=== PATIENT | female | born 1950 | race Caucasian/White ===

== ENCOUNTER 2018-01-13 03:57 | Emergency (ER) | payer MEDICARE, OTHER ==
[~2018-01-13] VITALS: Ht 167.6 cm; Wt 91.6 kg
[~2018-01-13 03:57] MED LIST: ACEASPCAF; CLIN300 PO; HYDCHL50 PO; ONDA8ODT MM; OXYACE5T PO; TRAM50 PO
[2018-01-13] MEDS ORDERED: XARELTO10 MG PO (04:15)
[2018-01-13] MEDS ORDERED: FURO20 PO (04:16)
[2018-01-13] MEDS ORDERED: K-Tab10 MEQ PO (04:17)
[2018-01-13] MEDS ORDERED: DILT120 PO (04:17)
[2018-01-13] MEDS ORDERED: TAMSULOSIN HCL0.4 MG PO (04:18)
[2018-01-13] MEDS ORDERED: GATIFLOXACIN2.5 ML LEFTEYE (05:00)
[2018-01-13] MEDS ORDERED: Norco 10-325 T1 EACH PO (05:00)
== END 2018-01-13 05:17 | disposition home or self-care (01) ==
LOC: ER 03:57
DX: H10.89 Other conjunctivitis (principal); Z88.0 Allergy status to penicillin; Z79.899 Other long term (current) drug therapy; I10 Essential (primary) hypertension
CPT/HCPCS: 99283

== ENCOUNTER 2018-06-24 06:53 | Day surgery (SDC) | payer MEDICARE, OTHER ==
[~2018-06-24 06:53] MED LIST changes: +DILT120 PO; +FURO20 PO; +GATIFLOXACIN2.5 ML LEFTEYE; +K-Tab10 MEQ PO; +Norco 10-325 T1 EACH PO; +TAMSULOSIN HCL0.4 MG PO; +XARELTO10 MG PO
== END 2018-06-24 22:38 | disposition home or self-care (01) ==
LOC: MHTC 06:53
PROC: 0JH632Z Insertion of Monitoring Device into Chest Subcutaneous Tissue and Fascia, Percutaneous Approach (ICD-10-PCS; principal; 2018-06-24)
DX: I48.0 Paroxysmal atrial fibrillation (principal); Z98.84 Bariatric surgery status; Z79.01 Long term (current) use of anticoagulants; R32 Unspecified urinary incontinence
CPT/HCPCS: 33282; 99152; C1764; J0690; J2250; J3010; J7040

== ENCOUNTER 2019-02-24 22:22 | Emergency (ER) | payer MEDICARE, OTHER ==
[~2019-02-24] VITALS: Ht 167.6 cm; Wt 89.8 kg
[2019-02-24 22:52] LABS: BASOPHILS ABSOLUTE AUTO 0.09 K/mm3 (0.00-0.23); BASOPHILS PERCENT AUTO 1 % (0-2); EOSINOPHILS ABSOLUTE AUTO 0.13 K/mm3 (0.00-0.68); EOSINOPHILS PERCENT AUTO 2 % (0-6); Hemoglobin 12.6 g/dL (11.5-16.0); IMMATURE GRAN ABSOLUTE AUTO 0.01 K/mm3 (0.00-0.10); IMMATURE GRAN PERCENT AUTO 0 % (0-1); LYMPHOCYTES ABSOLUTE AUTO 2.66 K/mm3 (0.84-5.20); LYMPHOCYTES PERCENT AUTO 40 % (21-46); MONOCYTES PERCENT AUTO 12 % (4-13); Mean Corpuscular HGB 30.2 pg (26.0-34.0); Mean Corpuscular HGB Conc 32.3 g/dL (31.5-36.5); Mean Corpuscular Volume 94 fL (80-100); Mean Platelet Volume 9.3 fL (9.1-12.4); NEUTROPHILS ABSOLUTE AUTO 3.01 K/mm3 (1.96-9.15); NEUTROPHILS PERCENT AUTO 45 % (41-73); Platelet Count 243 K/mm3 (150-400); RDW Coefficient Variation 13.2 % (11.7-14.2); RDW Standard Deviation 45.1 fL (35.1-46.3); Red Blood Cell Count 4.17 M/mm3 (3.80-5.20)
[2019-02-24 23:12] LABS: Alanine Aminotransfer (ALT/SGP 22 U/L (12-78); Albumin, Blood 3.5 g/dL (3.4-5.0); Albumin/Globulin Ratio 1.1 (0.8-1.8); Alk Phos 108 U/L (50-136); Anion Gap 7 mmol/L (6-16); Aspartate Aminotrans (AST/SGOT 19 U/L (12-37); Bilirubin, Total 0.3 mg/dL (0.1-1.0); Blood Urea Nitrogen 25 mg/dL (8-24); Bun/Creatinine Ratio 39.5 (12.0-20.0); CO2, Blood 26 mmol/L (21-32); Calcium, Blood 8.6 mg/dL (8.5-10.1); Chloride, Blood 109 mmol/L (98-108); Creatinine, Blood 0.63 mg/dL (0.40-1.00); Globulin, Blood 3.2 g/dL (2.2-4.0); Glomerular Filtration Rate >60 (60-); Glucose, Blood 75 mg/dL (70-99); Potassium, Blood 3.7 mmol/L (3.5-5.5); Sodium, Blood 142 mmol/L (136-145); Total Protein, Blood 6.7 g/dL (6.4-8.2)
[2019-02-24 23:17] LABS: Free Thyroxine 0.88 ng/dL (0.70-1.60)
[2019-02-24 23:19] LABS: Thyroid Stimulating Hormone 2.83 uIU/mL (0.360-4.800)
== END 2019-02-25 00:05 | disposition home or self-care (01) ==
LOC: ER 22:22
PROVIDERS: Emergency Medicine
DX: I48.91 Unspecified atrial fibrillation (principal); I10 Essential (primary) hypertension; Z88.0 Allergy status to penicillin; Z79.899 Other long term (current) drug therapy
CPT/HCPCS: 36415; 80053; 84439; 84443; 85025; 93005; 93010; 93299; J7030

== ENCOUNTER 2019-09-27 21:11 | Emergency (ER) | payer MEDICARE, OTHER ==
[~2019-09-27] VITALS: Ht 162.6 cm; Wt 59.0 kg
[2019-09-27] MEDS ORDERED: ATOR20 (21:44)
[2019-09-27] MEDS ORDERED: LOSA25 (21:44)
[2019-09-27] MEDS ORDERED: OXYB5 PO (21:45)
[2019-09-27 22:56] LABS: BASOPHILS ABSOLUTE AUTO 0.07 K/mm3 (0.00-0.23); BASOPHILS PERCENT AUTO 1 % (0-2); EOSINOPHILS PERCENT AUTO 1 % (0-6); Hematocrit 41.2 % (33.0-51.0); Hemoglobin 13.8 g/dL (11.5-16.0); IMMATURE GRAN ABSOLUTE AUTO 0.01 K/mm3 (0.00-0.10); IMMATURE GRAN PERCENT AUTO 0 % (0-1); LYMPHOCYTES ABSOLUTE AUTO 2.25 K/mm3 (0.84-5.20); LYMPHOCYTES PERCENT AUTO 27 % (21-46); MONOCYTES ABSOLUTE AUTO 0.79 K/mm3 (0.16-1.47); MONOCYTES PERCENT AUTO 10 % (4-13); Mean Corpuscular HGB 31.6 pg (26.0-34.0); Mean Corpuscular HGB Conc 33.5 g/dL (31.5-36.5); Mean Corpuscular Volume 94 fL (80-100); Mean Platelet Volume 10.5 fL (9.1-12.4); NEUTROPHILS ABSOLUTE AUTO 5.12 K/mm3 (1.96-9.15); NEUTROPHILS PERCENT AUTO 61 % (41-73); Platelet Count 291 K/mm3 (150-400); RDW Coefficient Variation 13.2 % (11.7-14.2); RDW Standard Deviation 45.5 fL (35.1-46.3); Red Blood Cell Count 4.37 M/mm3 (3.80-5.20); White Blood Cell Count 8.34 K/mm3 (4.00-11.30)
[2019-09-27 23:17] LABS: Alanine Aminotransfer (ALT/SGP 25 U/L (12-78); Albumin, Blood 3.2 g/dL (3.4-5.0); Albumin/Globulin Ratio 0.9 (0.8-1.8); Alk Phos 101 U/L (50-136); Anion Gap 6 mmol/L (6-16); Aspartate Aminotrans (AST/SGOT 28 U/L (12-37); Bilirubin, Total 0.3 mg/dL (0.1-1.0); Blood Urea Nitrogen 24 mg/dL (8-24); Bun/Creatinine Ratio 35.5 (12.0-20.0); CO2, Blood 25 mmol/L (21-32); Calcium, Blood 8.8 mg/dL (8.5-10.1); Chloride, Blood 110 mmol/L (98-108); Creatinine, Blood 0.68 mg/dL (0.40-1.00); Globulin, Blood 3.5 g/dL (2.2-4.0); Glomerular Filtration Rate >60 (60-); Glucose, Blood 70 mg/dL (70-99); Potassium, Blood 4.1 mmol/L (3.5-5.5); Sodium, Blood 141 mmol/L (136-145); Total Protein, Blood 6.7 g/dL (6.4-8.2); Troponin I <0.015 ng/mL (0.000-0.040)
== END 2019-09-27 23:49 | disposition home or self-care (01) ==
LOC: ER 21:11
PROVIDERS: Emergency Medicine
DX: I48.91 Unspecified atrial fibrillation (principal); I10 Essential (primary) hypertension; Z88.0 Allergy status to penicillin; Z79.899 Other long term (current) drug therapy; Z79.01 Long term (current) use of anticoagulants; Z45.09 Encounter for adjustment and management of other cardiac device
CPT/HCPCS: 36415; 80053; 84484; 85025; 93005; 93010; 93299; 96360; 99285-25; J7030

== ENCOUNTER 2019-09-28 12:15 | Emergency (ER) | payer MEDICARE, OTHER ==
[~2019-09-28] VITALS: Ht 167.6 cm; Wt 81.7 kg
[~2019-09-28 12:15] MED LIST changes: +ATOR20; +LOSA25; +OXYB5 PO
[2019-09-28 13:13] LABS: BASOPHILS ABSOLUTE AUTO 0.07 K/mm3 (0.00-0.23); BASOPHILS PERCENT AUTO 1 % (0-2); EOSINOPHILS ABSOLUTE AUTO 0.07 K/mm3 (0.00-0.68); EOSINOPHILS PERCENT AUTO 1 % (0-6); Hematocrit 41.3 % (33.0-51.0); Hemoglobin 13.7 g/dL (11.5-16.0); IMMATURE GRAN ABSOLUTE AUTO 0.01 K/mm3 (0.00-0.10); IMMATURE GRAN PERCENT AUTO 0 % (0-1); LYMPHOCYTES ABSOLUTE AUTO 2.47 K/mm3 (0.84-5.20); LYMPHOCYTES PERCENT AUTO 34 % (21-46); MONOCYTES ABSOLUTE AUTO 0.66 K/mm3 (0.16-1.47); MONOCYTES PERCENT AUTO 9 % (4-13); Mean Corpuscular HGB 31.3 pg (26.0-34.0); Mean Corpuscular HGB Conc 33.2 g/dL (31.5-36.5); Mean Corpuscular Volume 94 fL (80-100); Mean Platelet Volume 9.5 fL (9.1-12.4); NEUTROPHILS ABSOLUTE AUTO 4.03 K/mm3 (1.96-9.15); NEUTROPHILS PERCENT AUTO 55 % (41-73); Platelet Count 283 K/mm3 (150-400); RDW Coefficient Variation 13.2 % (11.7-14.2); Red Blood Cell Count 4.38 M/mm3 (3.80-5.20); White Blood Cell Count 7.31 K/mm3 (4.00-11.30)
[2019-09-28 13:41] LABS: Alanine Aminotransfer (ALT/SGP 24 U/L (12-78); Albumin, Blood 3.4 g/dL (3.4-5.0); Alk Phos 83 U/L (50-136); Anion Gap 5 mmol/L (6-16); Aspartate Aminotrans (AST/SGOT 16 U/L (12-37); Bilirubin, Total 0.4 mg/dL (0.1-1.0); Blood Urea Nitrogen 21 mg/dL (8-24); Bun/Creatinine Ratio 26.7 (12.0-20.0); CO2, Blood 28 mmol/L (21-32); Calcium, Blood 8.9 mg/dL (8.5-10.1); Chloride, Blood 108 mmol/L (98-108); Creatinine, Blood 0.79 mg/dL (0.40-1.00); Globulin, Blood 3.4 g/dL (2.2-4.0); Glomerular Filtration Rate >60 (60-); Glucose, Blood 89 mg/dL (70-99); Potassium, Blood 3.8 mmol/L (3.5-5.5); Sodium, Blood 141 mmol/L (136-145); Total Protein, Blood 6.8 g/dL (6.4-8.2); Troponin I <0.015 ng/mL (0.000-0.040)
[2019-09-28 14:47] LABS: Source, Urine Voided
[2019-09-28 15:03] LABS: Bilirubin, Urine Neg (Neg); Blood, Urine 1+ (Neg); Glucose Qualitative, Urine Neg (Neg); Ketones, Urine 1+ (Neg); Leukocyte Esterase, Urine 3+ (Neg); Nitrite, Urine Neg (Neg); Protein, Urine Neg (Neg); Specific Gravity, Urine 1.015 (1.003-1.022); Urobilinogen, Urine NORM (Normal)
[2019-09-28 15:07] LABS: Appearance, Urine Clear (Clear); Color, Urine Yellow (P-Yellow)
[2019-09-28 15:09] LABS: Bacteria Few /hpf; Mucus Mod (0-Heavy); Squamous Epithelial Cells Few /hpf (Few)
--- NOTE | 2019-09-28 16:44 | NUR ---
DEVICE INTERROGATION DONE PER ORDER BY DR MCDONALD. APPROPRIATELY SENSING.
== END 2019-09-28 17:31 | disposition home or self-care (01) ==
LOC: ER 12:15
PROVIDERS: Emergency Medicine; Physician Assistant
DX: I48.91 Unspecified atrial fibrillation (principal); I10 Essential (primary) hypertension; Z88.0 Allergy status to penicillin; Z79.899 Other long term (current) drug therapy
CPT/HCPCS: 36415; 71046; 80053; 81001; 83735; 83880; 84443; 84484; 85025; 87086; 92960; 93005; 93010; 93291; 96360-59; 96361-59; 99285-25; J7030

== ENCOUNTER 2019-10-11 06:00 | Day surgery (SDC) | payer MEDICARE, OTHER ==
[~2019-10-11] VITALS: Ht 182.9 cm; Wt 89.0 kg
[2019-10-11] MEDS ORDERED: ELIQUIS5 MG PO (06:39)
[2019-10-11] MEDS ORDERED: CENTRUM SILVER1 EAC2 PO (06:40)
--- NOTE | 2019-10-11 07:05 | NUR ---
SAMMY NAVARRO WITH [employer] IN ROOM TO INTERROGATE LOOP RECORDER AFTER CARDIOVERSION. VSS. RIVERO PT IN SINUS RHYTHM ON MONITOR.
--- NOTE | 2019-10-11 07:32 | NUR ---
EKG OBTAINED. VSS. NADN. PT DRESSES SELF WITHOUT DIFF. PT IV DC'D. CATH INTACT. PRESSURE DSG IN PLACE. PT VERBALIZES UNDERSTANDING WRITTEN AND VERBAL ORDERS. PT DC TO HOME VIA WC BY FRIEND.
== END 2019-10-11 22:59 | disposition home or self-care (01) ==
LOC: MHTC 06:00
DX: I48.91 Unspecified atrial fibrillation (principal); I71.9 Aortic aneurysm of unspecified site, without rupture; I10 Essential (primary) hypertension; Z88.0 Allergy status to penicillin; Z79.01 Long term (current) use of anticoagulants; Z79.899 Other long term (current) drug therapy
CPT/HCPCS: 92960; 93005; 93010; J2704; J7030

== ENCOUNTER 2019-10-17 12:54 | Day surgery (SDC) | payer MEDICARE, OTHER ==
[~2019-10-17 12:54] MED LIST changes: +CENTRUM SILVER1 EAC2 PO; +ELIQUIS5 MG PO
--- NOTE | 2019-10-17 16:06 | NUR ---
PT CARDIOVERSION 1 200 J SHOCK, SINUS FOR SHORT TIME THEN RYTHMN CONVERTED BACK TO AFIB. DR JAMES NOTIFIED, PLAN IS TO DC AND PT TO START AMIODARONE REGIMIN TODAY. F/U W DR MCDONALD SCHEDULED THIS COMING THURSDAY AT 1230. PT TOLD TO CALL [facility] AND PUT CARDIAC CT/MRI ON HOLD FOR NOW, PT DRESSED, IV DC'D INTACT, DC'D BY THIS RN BY WC W FRIEND DRIVING PT HOME.
== END 2019-10-17 22:39 | disposition home or self-care (01) ==
LOC: MHTC 12:54
DX: I48.91 Unspecified atrial fibrillation (principal); I10 Essential (primary) hypertension; E78.5 Hyperlipidemia, unspecified; E66.9 Obesity, unspecified; Z79.01 Long term (current) use of anticoagulants; Z79.899 Other long term (current) drug therapy; Z88.0 Allergy status to penicillin; Z68.27 Body mass index [BMI] 27.0-27.9, adult
CPT/HCPCS: 92960; 93005; 93010; 93291; 99152; J2250; J3010; J7030

== ENCOUNTER → 2020-07-25 | Outpatient (CLI) | payer MEDICARE, OTHER | END | disposition home or self-care (01) | LOC: LAB SRC 08:09 → LAB SHORT 08:09 | DX: R30.0 Dysuria (principal) | CPT/HCPCS: 87086 ==

== ENCOUNTER 2022-08-22 13:22 | Day surgery (SDC) | payer MEDICARE, OTHER ==
[~2022-08-22 13:22] MED LIST changes: +ATOR10 PO; -ATOR20
[2022-08-22] MEDS ORDERED: AMIODARONE HCL100 M1 PO (16:48)
[2022-08-22] MEDS ORDERED: XARELTO20 MG PO (16:49)
== END 2022-08-22 16:28 | disposition home or self-care (01) ==
LOC: ATC 13:22
DX: U07.1 COVID-19 (principal); I48.0 Paroxysmal atrial fibrillation; I10 Essential (primary) hypertension; Z88.0 Allergy status to penicillin; Z79.01 Long term (current) use of anticoagulants
CPT/HCPCS: 96374

== ENCOUNTER → 2023-05-18 | Outpatient (CLI) | payer MEDICARE, OTHER ==
[~2023-05-18] MED LIST changes: +AMIODARONE HCL100 M1 PO; +XARELTO20 MG PO
[2023-05-22 11:51] LABS: Stool Occult Bld Immuno 1 Positive (NEGATIVE)
== END ==
LOC: LAB SHORT 15:10 → LAB 15:10
PROVIDERS: Registered Nurse
DX: K92.1 Melena (principal)
CPT/HCPCS: G0328

== ENCOUNTER 2023-06-10 08:08 | Day surgery (SDC) | payer MEDICARE, OTHER ==
[2023-06-10] VITALS (28 sets, daily range): BP systolic 122–165; BP diastolic 66–105
[~2023-06-10] VITALS: Ht 165.1 cm; Wt 79.3 kg
[~2023-06-10 08:08] MED LIST changes: +LOSARTAN POTASS25 M2 PO
--- NOTE | 2023-06-10 08:50 | NUR ---
Ambulatory in Day Surgery. History, Chart, Medications and Allergies reviewed before start of procedure. Lungs clear T/O to Auscultation. Patient confirms NPO status and agrees with scheduled surgery. Pre-Op teaching done. Pt verbalizes understanding. Patient States Post-Procedure ride home has been arranged.
--- NOTE | 2023-06-10 10:39 | NUR ---
06/10/23 Jessica Araiza HISTORY, CHART, MEDICATIONS AND ALLERGIES REVIEWED BEFORE START OF PROCEDURE. PATIENT CONFIRMS NPO STATUS AND AGREES WITH SCHEDULED PROCEDURE. 3-LEAD EKG REVIEWED WITH PHYSICIAN PRIOR TO START OF PROCEDURE. MONITOR INTACT WITH CONTINUOUS PULSE OXIMETRY,CAPNOGRAPHY, 3-LEAD EKG, INTERMITTENT BP. SUPPLEMENTAL O2 TO BE TITRATED THROUGHOUT PROCEDURE TO MAINTAIN O2 SATURATION ABOVE 90%. PATIENT DETERMINED TO BE ASA APPROPRIATE FOR PROPOFOL SEDATION PRIOR TO START OF PROCEDURE BY .
--- NOTE | 2023-06-10 11:10 | NUR ---
REPORT RECIEVED. DR MORGAN AND FAMILY AT BEDSIDE. PT SITTING UP TOLERING PO FLUIDS. VSS ON ROOM AIR
--- NOTE | 2023-06-10 11:25 | NUR ---
Patient up to Ambulate independently. Gait steady. Discharge instructions reviewed with patient AND FAMILY . Patient verbalizes understanding. Copy given to patient to take home. Discharged via wheelchair to private car for ride home.
== END 2023-06-10 11:36 | disposition home or self-care (01) ==
LOC: ORSCMMR 08:08 → ORD 09:00 → ORSCMMR 11:36
PROVIDERS: Internal Medicine Gastroenterology
PROC: 0DB78ZX Excision of Stomach, Pylorus, Via Natural or Artificial Opening Endoscopic, Diagnostic (ICD-10-PCS; principal; 2023-06-10 09:00)
PROC: 0DBH8ZX Excision of Cecum, Via Natural or Artificial Opening Endoscopic, Diagnostic (ICD-10-PCS; principal; 2023-06-10 09:00)
PROC: 0DBL8ZX Excision of Transverse Colon, Via Natural or Artificial Opening Endoscopic, Diagnostic (ICD-10-PCS; principal; 2023-06-10 09:00)
DX: K92.1 Melena (principal); D50.0 Iron deficiency anemia secondary to blood loss (chronic); D12.0 Benign neoplasm of cecum; D12.3 Benign neoplasm of transverse colon; K29.70 Gastritis, unspecified, without bleeding; Z98.84 Bariatric surgery status; I48.91 Unspecified atrial fibrillation; Z79.01 Long term (current) use of anticoagulants; I10 Essential (primary) hypertension; Z79.899 Other long term (current) drug therapy; E78.00 Pure hypercholesterolemia, unspecified
CPT/HCPCS: 88305; A9270; J2704; J7120

== ENCOUNTER 2024-07-02 21:33 | Emergency (ER) | payer MEDICARE, OTHER ==
[~2024-07-02] VITALS: Ht 167.6 cm; Wt 82.5 kg
[2024-07-02] MEDS ORDERED: Tranexamic Acid 1000 MG/10 ML 10ML Vial (SDV) SCH (22:15)
[2024-07-02] MEDS ORDERED: Oxymetazoline 0.05% Nasal Relief Spray 15mL BTL SCH (22:15)
[2024-07-02] MEDS ORDERED: Silver Nitr/Potassium Nitrate 1 EA APPL TOP ONE (22:15)
[2024-07-03] MEDS ORDERED: Silver Nitr/Potassium Nitrate 1 EA APPL TOP ONE (01:05)
[2024-07-03 02:00] VITALS: BP 104/79
== END 2024-07-03 02:04 | disposition home or self-care (01) ==
LOC: ER 21:33
DX: R04.0 Epistaxis (principal); I10 Essential (primary) hypertension; I48.91 Unspecified atrial fibrillation; Z79.899 Other long term (current) drug therapy; Z88.0 Allergy status to penicillin
CPT/HCPCS: 30901; 99283-25; A9270

== ENCOUNTER 2024-07-04 23:25 | Emergency (ER) | payer MEDICARE, OTHER ==
[~2024-07-04] VITALS: Ht 167.6 cm; Wt 81.7 kg
[2024-07-04 23:40] LABS: BASOPHILS ABSOLUTE AUTO 0.09 K/mm3 (0.00-0.23); BASOPHILS PERCENT AUTO 1 % (0-2); EOSINOPHILS ABSOLUTE AUTO 0.08 K/mm3 (0.00-0.68); EOSINOPHILS PERCENT AUTO 1 % (0-6); Hematocrit 37.7 % (33.0-51.0); Hemoglobin 12.3 g/dL (11.5-16.0); IMMATURE GRAN ABSOLUTE AUTO 0.02 K/mm3 (0.00-0.10); IMMATURE GRAN PERCENT AUTO 0 % (0-1); LYMPHOCYTES ABSOLUTE AUTO 2.08 K/mm3 (0.84-5.20); LYMPHOCYTES PERCENT AUTO 29 % (21-46); MONOCYTES PERCENT AUTO 10 % (4-13); Mean Corpuscular HGB 32.7 pg (26.0-34.0); Mean Corpuscular HGB Conc 32.6 g/dL (31.5-36.5); Mean Corpuscular Volume 100 fL (80-100); Mean Platelet Volume 9.3 fL (9.1-12.4); NEUTROPHILS ABSOLUTE AUTO 4.31 K/mm3 (1.96-9.15); NEUTROPHILS PERCENT AUTO 59 % (41-73); Platelet Count 218 K/mm3 (150-400); RDW Coefficient Variation 12.9 % (11.7-14.2); RDW Standard Deviation 47.3 fL (35.1-46.3); Red Blood Cell Count 3.76 M/mm3 (3.80-5.20); White Blood Cell Count 7.28 K/mm3 (4.00-11.30)
[2024-07-04 23:57] LABS: Bilirubin, Total 0.2 mg/dL (0.1-1.0); Bun/Creatinine Ratio 32.4 (12.0-20.0); Calcium, Blood 8.5 mg/dL (8.5-10.1); Creatinine, Blood 0.89 mg/dL (0.40-1.00); Potassium, Blood 3.5 mmol/L (3.5-5.5)
[2024-07-05 02:30] VITALS: BP 115/89
== END 2024-07-05 02:30 | disposition home or self-care (01) ==
LOC: ER 23:25
PROVIDERS: Emergency Medicine
DX: I48.91 Unspecified atrial fibrillation (principal); I10 Essential (primary) hypertension; I08.0 Rheumatic disorders of both mitral and aortic valves; I71.9 Aortic aneurysm of unspecified site, without rupture; I70.90 Unspecified atherosclerosis; Z95.818 Presence of other cardiac implants and grafts; Z98.84 Bariatric surgery status; Z88.0 Allergy status to penicillin; Z79.01 Long term (current) use of anticoagulants; Z79.899 Other long term (current) drug therapy
CPT/HCPCS: 71046; 80053; 82947; 83690; 83880; 84484; 85025; 93005; 93010; 99285-25

== ENCOUNTER 2024-08-30 09:41 | Emergency (ER) | payer MEDICARE, OTHER ==
[~2024-08-30] VITALS: Ht 165.1 cm; Wt 79.4 kg
[2024-08-30 10:08] LABS: BASOPHILS ABSOLUTE AUTO 0.08 K/mm3 (0.00-0.23); BASOPHILS PERCENT AUTO 2 % (0-2); EOSINOPHILS ABSOLUTE AUTO 0.04 K/mm3 (0.00-0.68); EOSINOPHILS PERCENT AUTO 1 % (0-6); Hematocrit 40.8 % (33.0-51.0); Hemoglobin 13.5 g/dL (11.5-16.0); IMMATURE GRAN PERCENT AUTO 0 % (0-1); LYMPHOCYTES ABSOLUTE AUTO 1.54 K/mm3 (0.84-5.20); LYMPHOCYTES PERCENT AUTO 32 % (21-46); MONOCYTES PERCENT AUTO 10 % (4-13); Mean Corpuscular HGB 32.1 pg (26.0-34.0); Mean Corpuscular HGB Conc 33.1 g/dL (31.5-36.5); Mean Corpuscular Volume 97 fL (80-100); Mean Platelet Volume 9.4 fL (9.1-12.4); NEUTROPHILS ABSOLUTE AUTO 2.72 K/mm3 (1.96-9.15); NEUTROPHILS PERCENT AUTO 56 % (41-73); Platelet Count 200 K/mm3 (150-400); RDW Standard Deviation 46.7 fL (35.1-46.3); White Blood Cell Count 4.88 K/mm3 (4.00-11.30)
[2024-08-30 10:33] LABS: Albumin, Blood 3.6 g/dL (3.4-5.0); Albumin/Globulin Ratio 1.2 (0.8-1.8); Bilirubin, Total 0.9 mg/dL (0.1-1.0); Bun/Creatinine Ratio 26.6 (12.0-20.0); Creatinine, Blood 0.72 mg/dL (0.40-1.00); Globulin, Blood 2.9 g/dL (2.2-4.0); Potassium, Blood 3.9 mmol/L (3.5-5.5); Total Protein, Blood 6.5 g/dL (6.4-8.2)
[2024-08-30 11:39] LABS: Source, Urine Clean Catch
[2024-08-30 12:02] LABS: Bilirubin, Urine Neg (Neg); Blood, Urine 2+ (Neg); Glucose Qualitative, Urine Neg (Neg); Ketones, Urine Neg (Neg); Leukocyte Esterase, Urine 1+ (Neg); Nitrite, Urine Pos (Neg); Protein, Urine Neg (Neg); Urobilinogen, Urine 3+ (Normal); pH, Urine 6.5 (5.0-8.0)
[2024-08-30 12:18] LABS: Appearance, Urine Clear (Clear); Color, Urine Yellow (P-Yellow)
[2024-08-30 12:21] LABS: Bacteria Rare /hpf; Squamous Epithelial Cells Few /hpf (Few)
[2024-08-30 12:30] VITALS: BP 157/87
[2024-08-30] MEDS ORDERED: METOPROL SUC TAB 50M (12:46)
[2024-08-30] MEDS ORDERED: VALSARTAN160 MG PO (12:46)
== END 2024-08-30 12:47 | disposition home or self-care (01) ==
LOC: ER 09:41
PROVIDERS: Physician Assistant
DX: R07.89 Other chest pain (principal); I10 Essential (primary) hypertension; Z88.0 Allergy status to penicillin; Z79.899 Other long term (current) drug therapy
CPT/HCPCS: 71046; 80053; 81001; 84484; 85025; 87086; 93005; 93010; 99284-25

== ENCOUNTER → 2024-10-10 | Outpatient (CLI) | payer MEDICARE, OTHER ==
[~2024-10-10] MED LIST changes: +METOPROL SUC TAB 50M; +VALSARTAN160 MG PO
== END | disposition home or self-care (01) ==
LOC: LAB SHORT 14:00 → LAB 14:00
DX: R30.0 Dysuria (principal)
CPT/HCPCS: 87077; 87086; 87186